=== PATIENT | male | born 1935 | race Hispanic/Latino ===

== ENCOUNTER 2018-07-19 08:29 | Outpatient (CLI) | payer MEDICARE, BC | END 2018-07-19 08:30 | disposition home or self-care (01) | LOC: C.LAB 08:29 ==

== ENCOUNTER 2018-07-26 09:00 | Outpatient (CLI) | payer MEDICARE, BC | END 2018-07-26 09:01 | disposition home or self-care (01) | LOC: C.CTH 09:00 ==